=== PATIENT | female | born 1960 | race Caucasian/White ===

== ENCOUNTER 2017-02-12 05:55 | Emergency (ER) | payer MEDICAID ==
[~2017-02-12 05:55] MED LIST: CALTRATE-600 D600 MG PO; FLEXERIL DPS5 MG PO; FOSAMAX70 MG PO; HYDROCODONE 5MG/5 MG PO; KEPPRA XR750 MG PO; LAMICTAL XR200 MG PO; MAALOX DPS30 ML PO; MOTRIN-DPS400 MG PO; SURFAK DPS240 MG PO; TYLENOL DPS325 MG PO; VIMPAT200 MG PO
--- NOTE | 2017-02-14 13:01 | ER ---
ADMIT: 02/12/2017 RM/LOC: ER [facility] MR#: [id number] [address] [id number] GIOVANNY ALSTONSENG [place] [address] [place] [address] Emergency Room Report SEX: F AGE: 57 : 1960 DATE: 02/12/2017 HISTORY OF PRESENT ILLNESS: The patient is a 57-year-old female with a history of seizure, came here because of the fall and left shoulder pain. Allegedly, the patient tripped and fell off the 12 steps, daughter got at the scene right away and the patient did not have any loss of consciousness. Per daughter, the patient was not postictal and was not confused. The patient complains of left anterior shoulder pain and was holding the left shoulder immobilized. The patient also complains of mild left cervical paraspinal pain. The patient got to the ER. She has a history of seizure disorder and is compliant with her medications. The patient was in moderate distress, holding the shoulder, vitals were stable, fingerstick blood sugar was normal. The patient was put on cervical collar and CT of the head and C-spine was done, which was negative for any acute changes. Lab work was also noncontributory. X-ray of the left shoulder showed closed nondisplaced fracture of proximal left humerus. The patient had no neurovascular injury and no tendon injury. PHYSICAL EXAMINATION: MUSCULOSKELETAL: There are no signs of trauma in the whole body except for the left paraspinal and the left shoulder. HEENT: Pupils are 3 mm, reactive to light bilaterally. There is no hemotympanum. There is no Blackwell sign or raccoon eyes. Trachea is midline. NEUROLOGICAL: Motor and sensory and cerebellar tests are grossly normal. Cranial nerves are grossly normal. CHEST: Clear bilaterally without any crepitations. HEART: Normal heart sounds. ABDOMEN: Soft. PELVIS: Stable. EXTREMITIES: There are no other signs of injury or pain in other extremities. Dr. Ga was consulted, and they advised the patient can be put on a shoulder immobilizer and with the pain killers follow up as an outpatient. Plan was discussed with the patient and she agreed upon it and she was discharged to home. Vinh Mccullough MD/ ten JOB #: [id number] CC: Vinh Mccullough MD, Attending Physician Leonides Bran MD, Family Physician
== END 2017-02-12 07:58 | disposition home or self-care (01) ==
LOC: ER 05:55
DX: S42.202A Unspecified fracture of upper end of left humerus, initial encounter for closed fracture (principal); Z88.0 Allergy status to penicillin; W10.9XXA Fall (on) (from) unspecified stairs and steps, initial encounter